=== PATIENT | male | born 1945 | race Caucasian/White ===

== ENCOUNTER 2017-08-24 23:58 | Observation (INO) | payer MEDICARE ==
[2017-08-25] MEDS ORDERED: Dexamethasone 10 MG/ML VIAL ONE (00:34)
[2017-08-25] MEDS ORDERED: Magnesium Sulfate 2 GM/100 ML BAG ONE (00:35)
[2017-08-25 01:02] LABS: #Basophils 0.1 thou/uL (0.0-0.2); #Eosinphils 0.2 thou/uL (0.0-0.7); #Monocytes 0.7 thou/uL (0.11-0.59); #Neutrophils 7.7 thou/uL (1.40-6.50); %Basophils 0.7 % (0.0-1.0); %Eosinophils 1.6 % (0.0-10.0); %Lymphocytes 25.5 % (21.0-51.0); %Monocytes 6.3 % (0.0-10.0); Hematocrit 49.9 % (42.0-52.0); Mean Platelet Volume 7.7 fL (7.4-10.4); Red Blood Cell (RBC) Count 5.24 mill/uL (4.70-6.10); White Blood Cell (WBC) Count 11.7 thou/uL (4.8-10.8)
[2017-08-25 01:07] LABS: PTT 31.6 SEC (22.9-36.1); Prothrombin Time 13.3 SEC (12.0-14.7)
[2017-08-25 01:15] LABS: ALT (SGPT) 15 U/L (8-55); AST (SGOT) 21 U/L (5-34); Alkaline Phosphatase 141 U/L (40-150); Anion Gap 13 mmol/L (10-20); BUN (Urea Nitrogen) 12 mg/dL (8.4-25.7); Bilirubin, Total 0.6 mg/dL (0.2-1.2); CK (CPK) 89 U/L (30-200); Calc. Creatinine Clearance 0 mL/min (70-130); Carbon Dioxide 23 mmol/L (23-31); Chloride 109 mmol/L (98-107); Estimated GFR-MDRD Greater than 90; Globulin 2.8 g/dL (2.4-3.5); Lipase 33 U/L (8-78); Protein, Total 6.6 g/dL (5.8-8.1)
[2017-08-25 01:19] LABS: Troponin I 0.039 ng/mL (< 0.028)
[2017-08-25 02:13] LABS: Modified Allen's Test POSITIVE; Oxyhemoglobin 89.5 % (94.0-97.0); Sodium 141 mmol/L (135-148)
[2017-08-25 02:14] LABS: Mode ROOM AIR; Vent NO
[2017-08-25 04:51] LABS: Troponin I 0.035 ng/mL (< 0.028)
[2017-08-25 07:42] LABS: Troponin I 0.024 ng/mL (< 0.028)
--- NOTE | 2017-08-25 07:44 | RAD ---
CHEST 1 VIEW: HISTORY: Cough and congestion. COMPARISON: Chest 1 view 05/12/12. FINDINGS: There is blunting of the left lateral costophrenic sulcus. Faint airspace opacity in the right lung base. These are new. No pneumothorax. Cardiac silhouette and mediastinal contours are similar. IMPRESSION: 1. Small left effusion versus scarring. 2. New faint airspace opacity right lung base may represent pneumonia. Followup after treatment rec ommended. POS: ROSE MARY
[2017-08-25] MEDS ORDERED: HYDROcodone/Acetaminophen 5/325 mg Tablet PO PRN (08:33)
[2017-08-25] MEDS ORDERED: Acetaminophen 325 MG TAB PO PRN (08:33)
[2017-08-25] MEDS ORDERED: HYDROcodone/Acetaminophen 10/325 mg Tablet PO PRN (08:33)
[2017-08-25] MEDS ORDERED: Albuterol Sulfate 2.5 mg/3 ml Neb NEB PRN (08:41)
[2017-08-25 09:24] LABS: Troponin I 0.018 ng/mL (< 0.028)
--- NOTE | 2017-08-25 09:48 | PDOC.EVN ---
Event Note - Event Note Event Note: The chart was reviewed for the purpose of Utilization Management. The patient' s acuity does not meet the level of Inpatient status. Therefore under the Medicare Provision Code 44, the patient's status will be changed to Observation. The patient's Attending Physician initiated the change, and I agree.
[2017-08-25 12:49] VITALS: BMI 32.8
[2017-08-25] MEDS: Enoxaparin Sodium 40 MG/0.4 ML SYRINGE SC SCH (14:33)
[2017-08-25] MEDS: guaiFENesin ER 600 MG TAB PO SCH ×2 (14:34→21:27)
[2017-08-25] MEDS: Famotidine 20 MG TAB PO SCH ×2 (14:37→21:28)
[2017-08-25 17:45] LABS: Troponin I 0.013 ng/mL (< 0.028)
[2017-08-26] MEDS ORDERED: predniSONE 20 MG TAB PO SCH (08:00)
[2017-08-26 08:43] VITALS: BP 151/85; TEMP 97.9
[2017-08-26] MEDS: Enoxaparin Sodium 40 MG/0.4 ML SYRINGE SC SCH (08:44)
[2017-08-26] MEDS: Famotidine 20 MG TAB PO SCH (08:46)
[2017-08-26] MEDS: guaiFENesin ER 600 MG TAB PO SCH (08:46)
--- NOTE | 2017-08-26 15:08 | DIS ---
PRIMARY CARE PHYSICIAN: David Mora M.D. DATE OF ADMISSION: 08/25/2017 DATE OF DISCHARGE: 08/26/2017 DISCHARGE DIAGNOSES: 1. Acute exacerbation of chronic obstructive pulmonary disease. 2. Hypertension. 3. Obesity. 4. Ongoing tobacco abuse. 5. Probable acute on chronic bronchitis. 6. Benign prostatic hypertrophy. 7. Chronic obstructive pulmonary disease, unconfirmed. 8. Acute exacerbation of chronic obstructive pulmonary disease. CONSULTATIONS: None. PROCEDURES: 1. Echocardiogram on 08/26/2017 that showed EF of 45-50%, mild anterior septal hypokinesis, bradycar cecil, a grade I/III diastolic dysfunction, mild LVH, biatrial enlargement, mild mitral regurgitation, aortic valve sclerosis, but good function, mild AI, mild TR, mild to moderate pulmonary regurgitation . HISTORY AND PHYSICAL: Mr. Hillman is a 72-year-old gentleman who presented to the emergency [facility] [place] around midnight in the morning of 08/25/2017 for evaluation of acute onset of shortness of breath. The patient was asleep and was awakened out of sleep acutely short of breath. He denied any cough or sputum production. He did not have any wheezing, but did have some chest tightness. He presented t o the emergency department for evaluation. There, he was diagnosed with acute exacerbation of COPD. He was given IV magnesium and levofloxacin and Decadron, but no steroids or nebulizer treatments and we were called for admission. The patient was accepted by the automobile seat cover installer, but was not initially seen. The patient handed to me as an admission on the morning of 08/25/2017. HOSPITAL COURSE: The patient was seen and examined by me at 7:00 a.m. He was noted to be satting 96 % on room air. He had no wheezing, but he did have poor air movement. Based on his history, the pat ient was kept in observation, I contacted Pulmonary who agreed to see the patient as an outpatient, a 2D echocardiogram was ordered, nebulizer treatments, steroids, and levofloxacin was ordered. Throug h the day of 08/25/2017, the patient improved. He is moving better air and then continued to sat wel l on room air. Echocardiogram was ordered, but was not done immediately due to patient's location an d hold over the ER and the order was not being activated. Later that day, the patient was transferred to the floor, I spoke with him, he was breathing better, but still not his baseline, so he was watched overnight. Overnight he did well. He had no further e pisodes of shortness of breath. This morning, echocardiogram was done. I discussed the case with Dr Elias Sidhu and noted that the echocardiogram was not completely normal. The patient had no chest pain and negative biomarkers. It was agreed to let him go home with outpati ent followup for establishment with Dr. Sidhu and risk stratification. PHYSICAL EXAMINATION: The patient was seen and examined on the day of discharge. Discharge plan and disposition was discussed with the patient face to face at the bedside. DISCHARGE MEDICATIONS: 1. Albuterol sulfate nebulizer 2.5 mg nebulized q.2 hours p.r.n. shortness of breath or wheezing, pr escription was sent. 2. DuoNeb 3 mL q.6 hours scheduled. 3. Gabapentin 600 mg daily, the home med. 4. Guaifenesin 1200 mg p.o. q.12 hours, prescription sent. 5. Levofloxacin 500 mg daily for 5 more days. 6. Nebulizer and accessories, prescription sent. 7. Prednisone 20 mg p.o. q.a.m. for 14 days, prescription sent. 8. Promethazine with codeine as previously prescribed. 9. Ranitidine 300 mg daily as previous. 10. Zocor 20 mg p.o. at bedtime. 11. Flomax 0.4 mg p.o. daily, presume q.h.s. FOLLOWUP APPOINTMENTS 1. Dr. Mora within a week. 2. Dr. Sidhu in 1-[address] Ernie José for pulmonary evaluation in 1-2 weeks. DISCHARGE DIET: Heart healthy recommended. DISCHARGE ACTIVITY: Per cardiopulmonary limits. DISCHARGE CONDITION: Good. DISPOSITION: Discharged home via private vehicle. The patient is instructed to call his primary physician or return to emergency department for any wor sening of symptoms.
--- NOTE | 2017-08-28 02:09 | HP ---
PRIMARY CARE PHYSICIAN: David Mora M.D. The patient will see Dr. José and Dr. Sidhu. DATE OF ADMISSION: 08/25/2017 TIME OF SERVICE: 7 o'clock. CHIEF COMPLAINT: Cough, congestion, and shortness of breath. HISTORY OF PRESENT ILLNESS: Mr. Hillman is a pleasant 72-year-old gentleman with a history of chroni c neck pain and BPH. He was recently diagnosed about 1 month ago by his primary care physician with COPD due to chronic tobacco use. The patient had cough and shortness of breath about 48 hours prior to presentation and so he came to the emergency department for evaluation. Here he was diagnosed with acute exacerbation of COPD, he was given magnesium, Decadron, and levoflox acin, but on nebulizer treatments, we were called for admission. The patient was hold over from the relay man and I am admitting him first day in the morning. [facility] e arrival, his breathing is better. He has remained on room air. Denies any chest pain or shortness of breath, no fevers or chills. His cough has been nonproductive and no hemoptysis. Denies any cecil rrhea or constipation. The patient describes this episode of shortness of breath that awoke him up i n the middle of night gasping for air. He did not have any recollection of audible wheezing or chest pain. PAST MEDICAL HISTORY: 1. COPD, clinically diagnosed by his primary care physician about 1 month ago. 2. Benign prostatic hypertrophy. 3. Chronic neck pain. SURGICAL HISTORY: Includes, 1. Bilateral shoulders. 2. Rotator cuff repair. 3. Left knee repair. HOME MEDICATIONS: 1. Meloxicam 7.5 mg daily. 2. Tamsulosin 0.4 mg p.o. daily. 3. Gabapentin 300 mg daily. 4. Zocor 20 mg p.o. at bedtime. 5. Ranitidine 300 mg p.o. daily. 6. ProAir inhaler as needed. ALLERGIES: HYDRALAZINE, HYDROCODONE, and LYRICA. FAMILY HISTORY: Negative for clotting or bleeding disorder. No immune dysfunction. No history of p remature coronary artery disease. SOCIAL HISTORY: He does have a significant tobacco history and smoked about 3 packs per day for abou t 35 years. He quit 15 years ago and switched cigars and smokes a couple of cigars a day. He has no t had any cigars in about 3 days. He does not drink and never showed up with drugs. REVIEW OF SYSTEMS: A 10-point review of systems was performed, negative for all other systems except stated as per HPI. PHYSICAL EXAMINATION: VITAL SIGNS: Temperature 98.1, pulse 56, blood pressure 175/81, respiratory rate 22, saturating 90% on room air on arrival. After the antibiotics, steroids, and magnesium, his temperature was 98.5 wit h pulse of 56, blood pressure 159/80, respiratory rate 15, satting 98% on room air. Since admission, he has remained 96% better on room air since arrival. GENERAL: He is awake. He is alert. He is oriented x3. He is a well-developed, well-nourished, eld erly white male, appears to be in no distress. HEENT: Normocephalic and atraumatic. Pupils were equal, round, and reactive to light bilaterally. Mucous membranes are moist. He has no visible lesion, no thrush. NECK: Supple without lymphadenopathy, JVD, or thyromegaly. LUNGS: Clear. No wheezes. No rales. No rhonchi. He has no prolonged expiratory phase. He has go od air movements, symmetrical chest excursion. CARDIOVASCULAR: He is bradycardiac, but regular. He has no audible murmurs. ABDOMEN: Soft, it is nontender, nondistended. There is no masses, no organomegaly. There is no aguila ound, rigidity or guarding. There are normoactive bowel sounds present in all 4 quadrants. EXTREMITIES: Show no cyanosis, no clubbing. He has trace pedal edema. He has 2+ peripheral pulses, dorsalis pedis, and posterior tibial. SKIN: Warm, moist, and more profuse. There is no rashes, no lesions. MUSCULOSKELETAL: Normal to inspection. He has no inflamed joints. There is no palpable joint effus ion. NEUROLOGIC: Cranial nerves II-XII grossly intact. He has no focal deficits. LABORATORY STUDIES: Sodium 141, potassium 4.3, chloride 109, bicarbonate 23, BUN 12, creatinine 0.75 , and calcium 9.0. Glucose 107. Liver function is normal. CBC showed a white count of 11.7, hemogl obin 16.5, hematocrit of 49.9, platelet count is 270,000. Influenza screen was negative. CK-MB norm al at 0.9, troponin I 0.039 and 0.035. BNP was normal at 37.5 and INR of 1.0. Chest x-ray showed bi basilar atelectasis, but no acute cardiopulmonary disease. ASSESSMENT: 1. Acute exacerbation of chronic obstructive pulmonary disease. The patient is not looking or actin g quite like chronic obstructive pulmonary disease. He has no wheezing, no prolonged expiratory phas e. No air trapping on his chest x-ray. He got no nebulizer treatments in the ER. He is not requiri ng oxygen. He does have a significant smoking history. We will continue him on oral prednisone, neb ulizer treatments, and levofloxacin. More he does not any wheezing. His air movement is not optimal . We will recheck him after he gets some respiratory meds. 2. History of paroxysmal nocturnal dyspnea. We will get serial cardiac biomarkers. We will get 2D echocardiogram to assess cardiac function. Given his history certainly could have some underlying he art disease. Currently, BNP is negative. 3. History of benign prostatic hypertrophy. We will continue his tamsulosin here in the hospital. No history of chronic neck pain, on meloxicam and gabapentin, we will continue. 4. Gastroesophageal reflux disease, on ranitidine. The patient was placed in observation, we will get treatment started and get the echocardiogram. He may be here overnight and we can get everything done quickly, but should be here less than 24 hours.
--- NOTE | 2017-08-30 13:54 | EKG ---
Test Reason : Blood Pressure : / mmHG Vent. Rate : 049 BPM Atrial Rate : 049 BPM P-R Int : 192 ms QRS Dur : 092 ms QT Int : 452 ms P-R-T Axes : 038 005 052 degrees QTc Int : 408 ms Marked sinus bradycardia Possible Inferior infarct , age undetermined Abnormal ECG Confirmed by PARAS OAKLEY, CARLO ([id number]), film editor supervisor LYRIC ALLEN ([id number]) on 08/30/2017 1:52:46 PM Referred By: Confirmed By:CARLO CRAIN MD
== END 2017-08-26 10:41 | disposition home or self-care (01) ==
LOC: ERS 23:58 → INTOOBSV 08-25 02:45 → ERHOLD 08-25 02:45 → 2SW 08-25 12:38
PROVIDERS: ADMIT Internal Medicine; ATTEND Internal Medicine
DX: J44.1 Chronic obstructive pulmonary disease with (acute) exacerbation (principal); I10 Essential (primary) hypertension; N40.0 Benign prostatic hyperplasia without lower urinary tract symptoms; I34.0 Nonrheumatic mitral (valve) insufficiency; I35.0 Nonrheumatic aortic (valve) stenosis; I37.1 Nonrheumatic pulmonary valve insufficiency; I51.7 Cardiomegaly; G89.29 Other chronic pain; M54.2 Cervicalgia; F17.290 Nicotine dependence, other tobacco product, uncomplicated; K21.9 Gastro-esophageal reflux disease without esophagitis; E66.9 Obesity, unspecified; Z68.32 Body mass index [BMI] 32.0-32.9, adult; Z88.5 Allergy status to narcotic agent; Z88.8 Allergy status to other drugs, medicaments and biological substances; Z79.899 Other long term (current) drug therapy; Z98.890 Other specified postprocedural states
CPT/HCPCS: 71010; 80053; 82550; 82553 ×2; 82805; 83605; 83690; 83880; 84484 ×2; 85025; 85610; 85730; 87040; 87804 ×2; 93005; 93306; 94640 ×3; 96365; 96366; 96367; 96375; 99285; G0378; 36415; J1100; J1650; J1956; J3475; J7506; J7620

== ENCOUNTER 2017-10-05 11:12 | Outpatient (CLI) | payer MEDICARE ==
--- NOTE | 2017-10-06 15:44 | PFT ---
PATIENT HISTORY: HEIGHT: 71 IN WEIGHT:237 SMOKER: YES HOW LON YRS PACKS PER DAY: 3 PRODUCTIVE COUGH: NO LUNG DISEASE: PHYSICIAN INTERPRETATION FINAL REPORT: Moderate Reduction in expiratory flows in vital capacity following bronchodilator therapy, there was good improvement in vital capacity with a less improvement in expiratory flows RV hyperexpanded RV is hyperinflated. Gas transfer is reduced. IMPRESSION: Obstructive ventilatory impairment. 2. Reduced diffusing capacity Concrete Mixer Loader Truck Mounted: SALOMÓN Dipper Fish: SALOMÓN SR
== END 2017-10-05 11:13 | disposition home or self-care (01) ==
LOC: CP 11:12
PROVIDERS: ATTEND Internal Medicine
DX: J44.9 Chronic obstructive pulmonary disease, unspecified (principal); K21.9 Gastro-esophageal reflux disease without esophagitis
CPT/HCPCS: 80053; 85027; 85610; 85730; 93005; 93010; 94060; 94727; 94729

== ENCOUNTER 2017-10-07 05:51 | Day surgery (SDC) | payer MEDICARE ==
[2017-10-05 11:29] VITALS: BMI 34.0
[2017-10-07 06:53] LABS: Cardiac Risk 2.8 (Less than 4.5)
[2017-10-07] MEDS ORDERED: Heparin 10,000 UNITS/1 ML VIAL ONE (08:27)
[2017-10-07] MEDS ORDERED: Nitroglycerin 100MG/250ML BOT 250 ML ONE (08:30)
[2017-10-07] MEDS ORDERED: Verapamil 5 MG/2 ML VIAL ONE (08:30)
[2017-10-07] MEDS ORDERED: Midazolam HCl 2 mg/2 ml Vial ONE (08:46)
[2017-10-07] MEDS ORDERED: Fentanyl 100 MCG/2 ML VIAL ONE (08:48)
[2017-10-07] MEDS ORDERED: Iopamidol 370 76% 100 ML VIAL ONE (16:28)
== END 2017-10-07 12:38 | disposition home or self-care (01) ==
LOC: CCL 05:51
PROVIDERS: ATTEND Internal Medicine Cardiovascular Disease
DX: I25.5 Ischemic cardiomyopathy (principal); I25.10 Atherosclerotic heart disease of native coronary artery without angina pectoris; I42.0 Dilated cardiomyopathy; E78.00 Pure hypercholesterolemia, unspecified; J44.9 Chronic obstructive pulmonary disease, unspecified; I10 Essential (primary) hypertension; Z87.891 Personal history of nicotine dependence; Z82.49 Family history of ischemic heart disease and other diseases of the circulatory system; Z79.1 Long term (current) use of non-steroidal anti-inflammatories (NSAID); Z79.899 Other long term (current) drug therapy; Z88.8 Allergy status to other drugs, medicaments and biological substances; Z88.5 Allergy status to narcotic agent; Z96.1 Presence of intraocular lens; Z98.890 Other specified postprocedural states
CPT/HCPCS: 80061; 93458; 93567; C1769; 99152; J1644; J2250; J3010

== ENCOUNTER 2017-10-26 08:50 | Outpatient (CLI) | payer MEDICARE ==
--- NOTE | 2017-10-26 11:52 | CT ---
CTA OF THE THORAX UTILIZING IV CONTRAST AND 3D REFORMATTED IMAGING: Date: 10/26/17 INDICATION: History of hypertension, hypercholesterolemia, and thoracic aortic aneurysm without rupture. COMPARISON: Prior CTA examination dated 05/10/08. FINDINGS: The ectasia involving the ascending aorta measured at the level of the right main pulmonary artery me asures 4.3 cm. This previously measured 4.3 cm on the comparison exam from 2007. The aortic arch measured 2.9 cm, which measured up to 3.0 cm on the comparison examination. The descending thoracic aorta at the level of the right main pulmonary artery measures 2.8 cm, where as it previously measured 2.7 cm. There are coronary artery and thoracic aortic calcifications. The l eft vertebral artery originates from the aortic arch, which is a normal variant. The origins of the g reat vessels appear within normal limits. No definite central pulmonary embolus is evident. There is worsening centrilobular and paraseptal emphysema seen in the upper lobe distribution. No foc al consolidation, pleural effusion, or pneumothorax is evident. No suspicious pulmonary nodule is clementine dent. There are small focal regions of flash-filling arterial enhancement seen within segment 6 of the righ t hepatic lobe and segment 7 of the right hepatic lobe on images 128 and 106, series 2. These regions were beyond the field of view on the comparison examination. This may reflect small flash-filling he mangiomas; however, arterially enhancing metastatic lesions cannot be entirely excluded, but is felt to be unlikely without history of prior malignancy. No suspicious osteolytic or osteoblastic lesion i s identified. IMPRESSION: 1. Stable ectasia of the ascending aorta. Stable mild aneurysmal dilatation of the thoracic aortic a rch. 2. Worsening emphysema. 3. Small arterially enhancing foci within the posterior aspect of the right hepatic lobe. These may reflect small capillary type hemangiomas. As a conservative measure, would recommend a follow-up CT e valuation in 3-6 months utilizing hemangioma protocol and IV contrast for further characterization an d to document stability. Arterially enhancing metastatic disease would be part of the differential co nsiderations; however, in the absence of history of malignancy, this is felt to be unlikely. POS: KARL
[2017-10-26] MEDS ORDERED: Iopamidol 370 76% 100 ML VIAL ONE (13:35)
== END 2017-10-26 08:51 | disposition home or self-care (01) ==
LOC: CT 08:50
PROVIDERS: ATTEND Internal Medicine Cardiovascular Disease
DX: I71.2 Thoracic aortic aneurysm, without rupture (principal); J43.9 Emphysema, unspecified; K76.89 Other specified diseases of liver
CPT/HCPCS: 71275

== ENCOUNTER 2019-06-09 09:21 | Outpatient (CLI) | payer MEDICARE ==
[2019-06-09 10:03] LABS: Estimated GFR-MDRD - POC Greater than 90
--- NOTE | 2019-06-09 12:28 | CT ---
CTA CHEST WITH CONTRAT: Date: 06/09/19 COMPARISON: 10/26/17. HISTORY: Ascending aortic aneurysm. TECHNIQUE: Multiple contiguous axial images were obtained in a CTA of the chest without and with contrast. 3D sa gittal and coronal MIP reformats were performed. FINDINGS: No suspicious pulmonary nodules are seen. No focal infiltrates are seen. No pneumothorax or pleural e ffusion seen. Scattered diverticula are seen in the colon. The other visualized subdiaphragmatic structures are unr emarkable. Degenerative changes are seen in the spine. The chest wall soft tissues are unremarkable. There is stable ectasia of the ascending aorta. The sinus of Valsalva measures 4.6 cm in greatest dim ension. The ascending aorta measures 4.3 cm in maximum dimension at the level of the main pulmonary a rtery. The descending thoracic aorta is normal in caliber. No dissection is seen. IMPRESSION: Stable ectasia of the ascending aorta. POS: CET
[2019-06-09] MEDS ORDERED: ISOVUE-370 76%-LOCM 1 ML ONE (12:39)
== END 2019-06-09 09:22 | disposition home or self-care (01) ==
LOC: BICCT 09:21
PROVIDERS: ATTEND Internal Medicine Cardiovascular Disease
DX: I71.2 Thoracic aortic aneurysm, without rupture (principal); I77.810 Thoracic aortic ectasia
CPT/HCPCS: 36415; 71275; 82565; Q9966

== ENCOUNTER 2020-01-30 07:42 | Outpatient (CLI) | payer MEDICARE, OTHER ==
[2020-01-30 15:17] LABS: #Eosinphils 0.2 thou/uL (0.0-0.7); #Lymphocytes 1.8 thou/uL (1.20-3.40); #Monocytes 0.6 thou/uL (0.11-0.59); #Neutrophils 4.8 thou/uL (1.40-6.50); %Basophils 0.5 % (0.0-1.0); %Eosinophils 2.5 % (0.0-10.0); %Lymphocytes 24.1 % (21.0-51.0); %Monocytes 7.7 % (0.0-10.0); %Neutrophils 65.2 % (42.0-75.0); Hemoglobin 14.5 g/dL (14.0-18.0); Mean Corpuscular HGB CONC 32.5 g/dL (32.0-36.0); Mean Corpuscular Hemoglobin 30.8 pg (27.0-31.0); Mean Corpuscular Volume 94.8 fL (78.0-98.0); Mean Platelet Volume 8.9 fL (7.4-10.4); Platelet Count 218 thou/uL (130-400); RBC Distribution Width 13.7 % (11.5-14.5); Red Blood Cell (RBC) Count 4.71 mill/uL (4.70-6.10); White Blood Cell (WBC) Count 7.4 thou/uL (4.8-10.8)
[2020-01-31 10:58] LABS: SARS-CoV-2 MS2 Positive; SARS-CoV-2 N Gene Negative; SARS-CoV-2 S Gene Negative; SARS-CoV-2 orf1ab Negative
== END 2020-01-30 07:43 | disposition home or self-care (01) ==
LOC: LABBT 07:42
PROVIDERS: ATTEND Orthopaedic Surgery
DX: Z01.818 Encounter for other preprocedural examination (principal); Z11.59 Encounter for screening for other viral diseases; G56.01 Carpal tunnel syndrome, right upper limb
CPT/HCPCS: 85025; 93005; U0003; 87635; 93010

== ENCOUNTER 2020-02-01 06:42 | Day surgery (SDC) | payer MEDICARE ==
[2020-01-30 13:34] VITALS: BMI 35.2
[2020-02-01] MEDS ORDERED: Midazolam HCl 2 mg/2 ml Vial ONE (08:20)
[2020-02-01] MEDS ORDERED: Fentanyl 100 MCG/2 ML VIAL ONE (08:20)
[2020-02-01] MEDS ORDERED: Lidocaine 1% w/Epinephrine 1:100K 20 ML VIAL ONE (08:43)
--- NOTE | 2020-02-01 10:35 | OP ---
DATE OF PROCEDURE: 02/01/2020 PREOPERATIVE DIAGNOSIS: Carpal tunnel syndrome, right. POSTOPERATIVE DIAGNOSIS: Carpal tunnel syndrome, right. PROCEDURE PERFORMED: Right carpal tunnel release. ANESTHESIA: TIVA, local. BLOOD LOSS: Minimal. SPECIMEN: None. DRAINS: None. COMPLICATIONS: None. PROCEDURE IN DETAIL: After appropriate consent was obtained, the patient was taken to the operating room where TIVA anesthesia was induced. The arm was prepped and draped in the sterile fashion. The arm was exsanguinated. The tourniquet was inflated to 250 mmHg. A longitudinal incision was made. Hemostasis obtained. Dissection was carried down to the transverse carpal ligament. The transverse carpal ligament was incised. Hemostat was placed deep in the transverse carpal ligament. The knife was used to cut down unto the ligament and hemostat. Care was taken to protect the contents of the carpal canal. Attention was then turned proximally. Metzenbaum scissors were used to release the carpal ligament into the forearm fascia. The carpal tunnel was palpated. There were no masses. The tourniquet was released. Hemostasis was obtained. Copious irrigation performed. The skin was closed with 4-0 nylon. A sterile dressing was applied and the patient was placed in a splint. There were no complications. Job ID: [id number]
[2020-02-01] MEDS ORDERED: Glycopyrrolate 0.2 MG/ML 5 ML SYRINGE ONE (13:38)
[2020-02-01] MEDS ORDERED: PROPOFOL 200 MG/20 ML VIAL ONE (13:38)
== END 2020-02-01 10:15 | disposition home or self-care (01) ==
LOC: SDC 06:42
PROVIDERS: ATTEND Orthopaedic Surgery
PROC: 01N50ZZ Release Median Nerve, Open Approach (ICD-10-PCS; principal; 2020-02-01)
DX: G56.01 Carpal tunnel syndrome, right upper limb (principal); M16.12 Unilateral primary osteoarthritis, left hip; M19.019 Primary osteoarthritis, unspecified shoulder; I10 Essential (primary) hypertension; G47.33 Obstructive sleep apnea (adult) (pediatric); Z87.891 Personal history of nicotine dependence; Z79.1 Long term (current) use of non-steroidal anti-inflammatories (NSAID); Z79.82 Long term (current) use of aspirin; Z79.899 Other long term (current) drug therapy; Z88.5 Allergy status to narcotic agent; Z88.8 Allergy status to other drugs, medicaments and biological substances
CPT/HCPCS: J0690; J2250; J3010

== ENCOUNTER 2020-03-22 06:36 | Outpatient (CLI) | payer MEDICARE, OTHER ==
[2020-03-22 13:58] LABS: INR-International Normal Ratio 0.9; Prothrombin Time 12.5 sec (12.0-14.7)
[2020-03-22 14:11] LABS: #Eosinphils 0.1 thou/uL (0.0-0.7); #Lymphocytes 1.4 thou/uL (1.20-3.40); #Monocytes 0.5 thou/uL (0.11-0.59); #Neutrophils 5.2 thou/uL (1.40-6.50); %Basophils 0.5 % (0.0-1.0); %Lymphocytes 19.3 % (21.0-51.0); %Monocytes 6.7 % (0.0-10.0); %Neutrophils 71.5 % (42.0-75.0); Hemoglobin 15.3 g/dL (14.0-18.0); Mean Corpuscular HGB CONC 32.2 g/dL (32.0-36.0); Mean Corpuscular Hemoglobin 30.6 pg (27.0-31.0); Mean Corpuscular Volume 95.1 fL (78.0-98.0); Mean Platelet Volume 8.8 fL (7.4-10.4); Platelet Count 208 thou/uL (130-400); RBC Distribution Width 14.7 % (11.5-14.5); White Blood Cell (WBC) Count 7.2 thou/uL (4.8-10.8)
[2020-03-22 14:25] LABS: Bacteria/HPF None Seen HPF (None Seen); Bilirubin Negative (Negative); Blood, Urine Negative (Negative); Clarity Clear (Clear); Glucose, Urine (Dipstick) Normal (Negative); Ketone, Urine Negative (Negative); Leukocyte Negative Leu/uL (Negative); Nitrite Negative (Negative); Protein, Urine (Dipstick) Negative (Neg-Trace); RBC/HPF 0-3 HPF (0-3); Specific Gravity, Urine 1.016 (1.002-1.036); Squamous Epithelial None Seen HPF (0-3); Urobilinogen Normal mg/dL (Less than 2); WBC/HPF 0-3 HPF (0-3); pH, Urine 5.5 (5.0-9.0)
[2020-03-22 14:27] LABS: Anion Gap 14 mmol/L (10-20); BUN (Urea Nitrogen) 11 mg/dL (8.4-25.7); Calc. Creatinine Clearance 0 mL/min (70-130); Calcium 9.2 mg/dL (7.8-10.44); Carbon Dioxide 23 mmol/L (23-31); Chloride 107 mmol/L (98-107); Estimated GFR-MDRD Greater than 90; Glucose 95 mg/dL (83-110); Potassium 4.8 mmol/L (3.5-5.1); Sodium 139 mmol/L (136-145)
[2020-03-23 12:16] LABS: SARS-CoV-2 MS2 Positive; SARS-CoV-2 N Gene Negative; SARS-CoV-2 S Gene Negative; SARS-CoV-2 orf1ab Negative
== END 2020-03-22 06:37 | disposition home or self-care (01) ==
LOC: LABBT 06:36
PROVIDERS: ATTEND Orthopaedic Surgery
DX: Z01.818 Encounter for other preprocedural examination (principal); Z11.59 Encounter for screening for other viral diseases; M16.11 Unilateral primary osteoarthritis, right hip
CPT/HCPCS: 80048; 81001; 85025; 85610; 87081; 93005; U0003; 87635; 93010

== ENCOUNTER 2020-03-22 10:30 | Inpatient (IN) | payer MEDICARE ==
[2020-03-20 11:31] VITALS: BMI 34.7
[2020-03-26] MEDS ORDERED: CEFAZOLIN 2 GM in Premix Bag 1 BAG IVPB SCH (07:15)
[2020-03-26] MEDS ORDERED: Fentanyl 100 MCG/2 ML VIAL ONE ×4 (07:25→11:23)
[2020-03-26] MEDS ORDERED: Midazolam HCl 2 mg/2 ml Vial ONE (07:25)
[2020-03-26] MEDS ORDERED: Tranexamic Acid 1,000 MG/10 ML VIAL ONE (07:41)
[2020-03-26] MEDS ORDERED: Sodium Chloride 0.9% 100 ML ONE (07:41)
[2020-03-26] MEDS ORDERED: Naloxone HCl 0.4 mg/ml Vial IVP PRN (08:15)
[2020-03-26] MEDS ORDERED: Hydrocerin (Eucerin) Cream 120 gm Jar TOP PRN (08:15)
[2020-03-26] MEDS ORDERED: Promethazine HCl 25 MG SUPP PR PRN (08:15)
[2020-03-26] MEDS ORDERED: Naloxone HCl 0.4 mg/ml Vial IV PRN (08:15)
[2020-03-26] MEDS ORDERED: traMADol HCl 50 MG TAB PO PRN (08:15)
[2020-03-26] MEDS ORDERED: Ondansetron PF 4 MG/2 ML Vial IVP PRN ×2 (08:15→10:40)
[2020-03-26] MEDS ORDERED: diphenhydrAMINE 50 MG/ML VIAL IM PRN (08:15)
[2020-03-26] MEDS ORDERED: Zolpidem Tartrate 5 MG TAB PO PRN ×2 (08:15→10:40)
[2020-03-26] MEDS ORDERED: diphenhydrAMINE 50 MG/ML VIAL IVP PRN (08:15)
[2020-03-26] MEDS ORDERED: Bupivacaine 0.25% 10 ML VIAL EPIDURAL PRN (08:15)
[2020-03-26] MEDS ORDERED: Promethazine HCl 25 MG/ML VIAL IM PRN ×3 (08:15→10:45)
[2020-03-26] MEDS ORDERED: Bupivacaine/Epinephrine 0.25% 30 ML VIAL ONE (09:09)
[2020-03-26] MEDS ORDERED: SUGAMMADEX SODIUM 200 MG/2 ML VIAL ONE (10:37)
[2020-03-26] MEDS ORDERED: diphenhydrAMINE 25 MG CAP PO PRN (10:40)
[2020-03-26] MEDS ORDERED: oxyCODONE/Acetaminophen 5 mg/325 mg Tablet PO PRN ×2 (10:43)
[2020-03-26] MEDS ORDERED: PACU-Morphine 4MG/ML VIAL SLOW IVP PRN (10:45)
[2020-03-26] MEDS ORDERED: Meperidine HCl/PF 25 MG/ML VIAL SLOW IVP PRN (10:45)
[2020-03-26] MEDS ORDERED: HYDROmorphone 2 MG/ML VIAL SLOW IVP PRN (10:45)
[2020-03-26] MEDS ORDERED: Promethazine HCl 25 MG/ML VIAL SLOW IVP PRN (10:45)
[2020-03-26] MEDS ORDERED: Ondansetron HCl/PF 4 MG/2 ML Vial IVP PRN (10:45)
[2020-03-26] MEDS ORDERED: Morphine Sulfate 2 MG/ML SYRINGE SLOW IVP PRN (10:45)
[2020-03-26] MEDS ORDERED: Ketorolac Tromethamine 30 MG/ML VIAL ONE (10:57)
--- NOTE | 2020-03-26 11:28 | RAD ---
Right hip 2 views HISTORY: Hip replacement. Arthritis. FINDINGS: Metallic prosthesis is in place. Minimal adjacent lucency at the midportion of the acetabul ar component. No other metallic foreign bodies evident. Soft tissue gas from recent surgery. IMPRESSION : Right hip prosthesis is in good radiographic position.
[2020-03-26] MEDS ORDERED: Lidocaine 1.5% w/Epi 1:200K 30 ML VIAL (Epid Use) ONE (14:01)
[2020-03-26] MEDS ORDERED: PROPOFOL 200 MG/20 ML VIAL ONE (14:01)
[2020-03-26] MEDS ORDERED: Glycopyrrolate 0.2 MG/ML 5 ML SYRINGE ONE ×2 (14:01)
[2020-03-26] MEDS ORDERED: Lidocaine 1% PF 5 ML VIAL ONE (14:01)
[2020-03-26] MEDS ORDERED: Rocuronium Bromide 10 MG/ML (10ML VIAL) ONE (14:01)
[2020-03-26] MEDS ORDERED: Dexamethasone 20 MG/5 ML VIAL ONE (14:01)
[2020-03-26] MEDS ORDERED: EPHEDRINE 25 MG/5 ML SYRINGE ONE (14:01)
[2020-03-26] MEDS ORDERED: Ondansetron PF 4 MG/2 ML Vial ONE (14:01)
[2020-03-26] MEDS: Acetaminophen 325 MG TAB PO SCH ×3 (18:01→21:08)
[2020-03-26] MEDS: Ketorolac Tromethamine 30 MG/ML VIAL IVP SCH ×3 (18:02→23:51)
[2020-03-26] MEDS: Sodium Chloride 0.9% 1,000 ML IV SCH ×2 (18:02→21:06)
[2020-03-26] MEDS: CEFAZOLIN 2 GM in Premix Bag 1 BAG IVPB SCH ×2 (18:34→23:51)
[2020-03-26] MEDS: Amlodipine 5 MG TAB PO SCH (21:08)
[2020-03-26] MEDS: Finasteride 5 MG TAB PO SCH (21:09)
[2020-03-26] MEDS: Lisinopril 20 MG TAB PO SCH (21:09)
[2020-03-26] MEDS: Tamsulosin HCl 0.4 MG CAP PO SCH (21:09)
[2020-03-26] MEDS: Gabapentin 300 MG CAP PO SCH (21:09)
[2020-03-26] MEDS: Aspirin 81 mg Enteric Coated Tablet PO SCH (21:09)
[2020-03-26] MEDS: Famotidine 20 MG TAB PO SCH (21:10)
[2020-03-26] MEDS: Atorvastatin Calcium 10 MG TAB PO SCH (21:10)
[2020-03-27] MEDS: fentaNYL Citrate/PF 500 MCG, Bupivacaine 10 ML in Sodium Chloride 0.9% 80 ML EPIDURAL SCH ×2 (00:30→16:50)
[2020-03-27] MEDS: Acetaminophen 325 MG TAB PO SCH ×6 (00:31→20:47)
[2020-03-27 05:35] LABS: Hemoglobin 12.9 g/dL (14.0-18.0); Mean Corpuscular HGB CONC 33.2 g/dL (32.0-36.0); Mean Corpuscular Hemoglobin 31.5 pg (27.0-31.0); Mean Corpuscular Volume 94.7 fL (78.0-98.0); Mean Platelet Volume 8.5 fL (7.4-10.4); Platelet Count 225 thou/uL (130-400); RBC Distribution Width 14.4 % (11.5-14.5); White Blood Cell (WBC) Count 8.8 thou/uL (4.8-10.8)
[2020-03-27] MEDS: Ketorolac Tromethamine 30 MG/ML VIAL IVP SCH ×3 (05:56→17:09)
[2020-03-27] MEDS: diphenhydrAMINE 25 MG CAP PO PRN ×3 (06:03→20:55)
[2020-03-27] MEDS: Senokot S 8.6-50 MG TAB PO SCH ×2 (08:02→20:47)
[2020-03-27] MEDS: Aspirin 81 mg Enteric Coated Tablet PO SCH ×2 (08:02→20:46)
[2020-03-27] MEDS: Multivitamin W/ Minerals 1 TAB PO SCH (08:03)
[2020-03-27] MEDS: Ferrous Gluconate 324 MG TAB PO SCH ×2 (08:03→20:47)
[2020-03-27] MEDS: Sodium Chloride 0.9% 1,000 ML IV SCH ×2 (08:17→16:25)
[2020-03-27] MEDS ORDERED: Aspirin 81 mg Enteric Coated Tablet PO SCH (09:00)
[2020-03-27] MEDS: Lisinopril 20 MG TAB PO SCH (20:46)
[2020-03-27] MEDS: Atorvastatin Calcium 10 MG TAB PO SCH (20:46)
[2020-03-27] MEDS: Famotidine 20 MG TAB PO SCH (20:46)
[2020-03-27] MEDS: Gabapentin 300 MG CAP PO SCH (20:46)
[2020-03-27] MEDS: Finasteride 5 MG TAB PO SCH (20:46)
[2020-03-27] MEDS: Tamsulosin HCl 0.4 MG CAP PO SCH (20:47)
[2020-03-27] MEDS: Amlodipine 5 MG TAB PO SCH (20:47)
[2020-03-28] MEDS: Ketorolac Tromethamine 30 MG/ML VIAL IVP SCH ×2 (00:21→05:15)
[2020-03-28] MEDS: Sodium Chloride 0.9% 1,000 ML IV SCH ×3 (00:22→23:27)
[2020-03-28] MEDS: Acetaminophen 325 MG TAB PO SCH ×3 (00:22→09:23)
[2020-03-28] MEDS: diphenhydrAMINE 25 MG CAP PO PRN ×2 (05:19→09:23)
[2020-03-28] MEDS: Multivitamin W/ Minerals 1 TAB PO SCH (09:23)
[2020-03-28] MEDS: Aspirin 81 mg Enteric Coated Tablet PO SCH ×2 (09:23→20:15)
[2020-03-28] MEDS: Senokot S 8.6-50 MG TAB PO SCH ×2 (09:23→20:15)
[2020-03-28] MEDS: Ferrous Gluconate 324 MG TAB PO SCH ×2 (09:23→20:15)
[2020-03-28] MEDS ORDERED: Ibuprofen 200 MG TAB PO PRN (09:49)
[2020-03-28] MEDS ORDERED: Acetaminophen 325 MG TAB PO PRN (12:00)
[2020-03-28] MEDS: traMADol HCl 50 MG TAB PO PRN ×2 (13:40→19:06)
[2020-03-28] MEDS: Famotidine 20 MG TAB PO SCH (20:15)
[2020-03-28] MEDS: Gabapentin 300 MG CAP PO SCH (20:15)
[2020-03-28] MEDS: Finasteride 5 MG TAB PO SCH (20:15)
[2020-03-28] MEDS: Lisinopril 20 MG TAB PO SCH (20:15)
[2020-03-28] MEDS: Atorvastatin Calcium 10 MG TAB PO SCH (20:16)
[2020-03-28] MEDS: Tamsulosin HCl 0.4 MG CAP PO SCH (20:16)
[2020-03-28] MEDS: Amlodipine 5 MG TAB PO SCH (20:16)
[2020-03-29] MEDS: traMADol HCl 50 MG TAB PO PRN (00:51)
[2020-03-29] MEDS: Aspirin 81 mg Enteric Coated Tablet PO SCH (09:11)
[2020-03-29] MEDS: Ferrous Gluconate 324 MG TAB PO SCH (09:11)
[2020-03-29] MEDS: Senokot S 8.6-50 MG TAB PO SCH (09:11)
[2020-03-29] MEDS: Multivitamin W/ Minerals 1 TAB PO SCH (09:11)
[2020-03-29] MEDS: Sodium Chloride 0.9% 1,000 ML IV SCH (09:17)
[2020-03-29 09:56] VITALS: BP 117/68; TEMP 97.7
--- NOTE | 2020-04-04 13:22 | OP ---
DATE OF PROCEDURE: 03/26/2020 This is Mohan Wolff PA-C dictating a report for Hang Rodriguez MD. ANESTHESIA: General via endotracheal tube, augmented with indwelling epidural. PREOPERATIVE DIAGNOSIS: End-stage bicompartmental osteoarthritis, right hip POSTOPERATIVE DIAGNOSIS: End-stage bicompartmental osteoarthritis, right hip PROCEDURE: Press-fit right total hip arthroplasty. BRAND SALES MANAGER: Mohan Wolff PA-C COMPONENTS USED: [employer] Accolade II size 4 press-fit hip stem with a Trident II Tritanium 58-mm press-fit acetabular cluster hole shell, 10 degree polyethylene fixed bearing insert, and a 36 mm -5 neck length femoral head. ESTIMATED BLOOD LOSS: Less than 100 mL. SPECIMENS: None. DRAINS: None. COMPLICATIONS: None. COUNTS: Correct. FINDINGS: End-stage severe degenerative bicompartmental disease, [id number] arthrosis, periarticular osteophyte formation, large serous effusion, hypertrophic synovial changes, consistent with degenerative bicompartmental osteoarthritis, chronic in nature. INPUT: 1 L of crystalloid. OUTPUT: 200 mL of clear yellow urine. INDICATIONS FOR SURGERY: Derrick is a 75-year-old white male who has had progressive right hip groin and thigh pain and problem with standing and walking for the last 5 to 7 years. He has failed conservative management and elected to proceed with total hip arthroplasty as definitive treatment of his pain. PROCEDURE IN DETAIL: After informed consent was obtained in the preoperative holding area, the patient was taken to the operative suite where general anesthesia was induced. The patient was then positioned in the lateral decubitus position. The hip was then prepped and draped in usual sterile fashion. The patient received preoperative antibiotics. Prior to incision, time-out was called and all members of the surgical team agreed upon site, surgeon, and patient. After this, a longitudinal incision was made directly over the trochanter, noted by palpation extending 2 fingerbreadths above and below the trochanter. The deeper subcutaneous layer was undermined with Bovie electrocautery. The iliotibial band was encountered and incised sharply and the plane below this was developed bluntly. A Charnley retractor was placed to hold this opened. The lateral aspect of the trochanter and the abductor muscles were encountered and then reflected anteriorly off the trochanter using Bovie electrocautery. Once this was completed, the anterior capsule was then encountered and identified and copious capsulotomy was carried out, exposing the femoral neck and head. Dislocation maneuver was then performed and the surgeon child nutrition assistant then used the oscillating saw to make a provisional neck cut, which was approximately one fingerbreadth above the top of the lesser trochanter clinically. The surgeon attention was then turned to acetabular preparation. Sequential reaming was carried out up to the appropriate diameter and a trial was then malleted into place with good firm resistance and no pullout. The permanent acetabular shell was then malleted squarely into place, as was the appropriate liner. Once completed, the wound was copiously irrigated and attention was then turned to femoral preparation. Flexion and external rotation were performed of the exposed thigh and femoral elevators were then placed at the proximal aspect of the wound. The surgeon child nutrition assistant then used the acetabular reaming device sequentially to the appropriate size. Canal finder was used to establish the length of the canal and sequential reaming was carried out, followed by broaching. Once the appropriate stability was established with the trial broaches with flexion, extension and rotational stability, we did trial with neutral and 2 mm offset incremental necks. Once the appropriate size was decided upon, with good stability noted with flexion, extension, internal and external rotation and shuck being negative, we removed the femoral trial broach and malletted into place the permanent prosthesis with good firm fit, which was also stable to rotation. Again, the hip felt very stable to flexion, extension, internal and external rotation. Leg lengths appeared near anatomic clinically and we were quite happy with prosthesis placement. Copious irrigation was then carried out through the entirety of the wound. Primary closure of the abductors was accomplished with interrupted #2 Vicryl [id number] stitches and the IT band was then closed with interrupted #2 Vicryl, oversewn with a #2 running barbed Quill stitch. Subcutaneous fascia was closed with running barbed Quill stitch and a subcuticular Monocryl barbed Quill stitch was used for skin closure and augmented with skin cement. A sterile dressing was applied. The procedure was terminated without any complication. All counts were correct. The patient was awakened in the operative suite and taken to the recovery room in stable condition. Job ID: [id number]
== END 2020-03-29 14:30 | disposition home health service (06) | DRG 470 ==
LOC: SURG A 03-26 06:27 → EDSTATUS 03-26 10:30 → SURG A 03-26 15:42
PROVIDERS: ADMIT Orthopaedic Surgery; ATTEND Orthopaedic Surgery
PROC: 0SR902A Replacement of Right Hip Joint with Metal on Polyethylene Synthetic Substitute, Uncemented, Open Approach (ICD-10-PCS; principal; 2020-03-26)
DX: M16.11 Unilateral primary osteoarthritis, right hip (principal); I10 Essential (primary) hypertension; E78.5 Hyperlipidemia, unspecified; J44.9 Chronic obstructive pulmonary disease, unspecified; G47.30 Sleep apnea, unspecified; E66.9 Obesity, unspecified; N40.0 Benign prostatic hyperplasia without lower urinary tract symptoms; Z87.891 Personal history of nicotine dependence; Z68.34 Body mass index [BMI] 34.0-34.9, adult; Z79.899 Other long term (current) drug therapy; Z79.82 Long term (current) use of aspirin
CPT/HCPCS: 36415; 85027; C1776; J0690; J1100; J1885; J2001; J2250; J2405; J2704; J3010; J3490; Q0163

== ENCOUNTER 2021-02-18 12:58 | Outpatient (CLI) | payer MEDICARE | END 2021-02-18 12:59 | disposition home or self-care (01) | LOC: SCSMRI 12:58 | PROVIDERS: ATTEND Orthopaedic Surgery | DX: M48.062 Spinal stenosis, lumbar region with neurogenic claudication (principal); M47.816 Spondylosis without myelopathy or radiculopathy, lumbar region; M47.817 Spondylosis without myelopathy or radiculopathy, lumbosacral region; M48.07 Spinal stenosis, lumbosacral region | CPT/HCPCS: 72148 ==

== ENCOUNTER 2021-07-03 11:37 | Outpatient (CLI) | payer MEDICARE | END 2021-07-03 11:38 | disposition home or self-care (01) | LOC: CT 11:37 | PROVIDERS: ATTEND Internal Medicine Cardiovascular Disease | DX: I71.2 Thoracic aortic aneurysm, without rupture (principal) | CPT/HCPCS: 71275 ==

== ENCOUNTER 2021-12-11 15:28 | Outpatient (CLI) | payer MEDICARE ==
[2021-12-11 16:34] LABS: #Basophils 0.1 10x3/uL (0.0-0.2); #Eosinphils 0.1 10x3/uL (0.0-0.5); #Monocytes 0.8 10x3/uL (0.0-1.1); #Neutrophils 7.7 10x3/uL (1.5-8.4); %Basophils 0.8 % (0.0-2.0); %Eosinophils 0.9 % (0.0-6.0); %Lymphocytes 13.7 % (18.0-47.0); %Monocytes 8.1 % (0.0-10.0); %Neutrophils 76.2 % (40.0-75.0); Hemoglobin 15.2 g/dL (13.5-17.5); Mean Corpuscular HGB CONC 32.1 g/dL (32.0-36.0); Mean Corpuscular Hemoglobin 29.5 pg (27.0-33.0); Mean Corpuscular Volume 91.9 fl (81.2-95.1); Mean Platelet Volume 10.6 fl (7.4-10.4); Platelet Count 364 10x3/uL (150-450); RBC Distribution Width 14.7 % (11.5-14.5); Red Blood Cell (RBC) Count 5.16 10x6/uL (4.32-5.72); White Blood Cell (WBC) Count 10.1 10x3/uL (3.5-10.5)
[2021-12-11 16:49] LABS: Anion Gap 14 mmol/L (10-20); BUN (Urea Nitrogen) 13 mg/dL (8.4-25.7); Calc. Creatinine Clearance 0 mL/min (70-130); Calcium 9.6 mg/dL (7.8-10.44); Carbon Dioxide 28 mmol/L (23-31); Chloride 106 mmol/L (98-107); Glucose 81 mg/dL (83-110); Potassium 4.3 mmol/L (3.5-5.1); Sodium 144 mmol/L (136-145)
[2021-12-12 15:49] LABS: SARS-CoV-2 PCR by NAA Not Detected (NotDetected)
== END 2021-12-11 15:29 | disposition home or self-care (01) ==
LOC: LABBT 15:28
PROVIDERS: ATTEND Orthopaedic Surgery
DX: Z01.812 Encounter for preprocedural laboratory examination (principal); M16.12 Unilateral primary osteoarthritis, left hip; Z20.822 Contact with and (suspected) exposure to COVID-19
CPT/HCPCS: 80048; 85025; 87081; U0003; U0005

== ENCOUNTER 2022-07-22 09:52 | Outpatient (CLI) | payer MEDICARE | END 2022-07-22 09:53 | disposition home or self-care (01) | LOC: RAD 09:52 | PROVIDERS: ATTEND Internal Medicine Critical Care Medicine | DX: R06.00 Dyspnea, unspecified (principal) | CPT/HCPCS: 71046 ==

== ENCOUNTER 2022-10-12 10:39 | Outpatient (CLI) | payer MEDICARE | END 2022-10-12 10:40 | disposition home or self-care (01) | LOC: TBSIIMAG 10:39 | PROVIDERS: ATTEND Orthopaedic Surgery Hand Surgery | DX: M47.22 Other spondylosis with radiculopathy, cervical region (principal); M48.02 Spinal stenosis, cervical region; M50.11 Cervical disc disorder with radiculopathy, high cervical region; M25.78 Osteophyte, vertebrae; M50.123 Cervical disc disorder at C6-C7 level with radiculopathy; M47.23 Other spondylosis with radiculopathy, cervicothoracic region | CPT/HCPCS: 72141 ==

== ENCOUNTER 2023-03-22 05:46 | Day surgery (SDC) | payer MEDICARE ==
[2023-03-18 09:02] VITALS: BMI 27.9
[2023-03-22] MEDS ORDERED: Propofol 500 MG/50 ML VIAL ONE (06:33)
[2023-03-22] MEDS ORDERED: EPINEPHrine 1 MG/ML AMP ONE (06:35)
[2023-03-22] MEDS ORDERED: Lidocaine 1% (PF) 30 ML VIAL ONE (06:35)
[2023-03-22] MEDS ORDERED: CEFAZOLIN 2 GM VIAL ONE (06:37)
[2023-03-22] MEDS ORDERED: Sodium Chloride 0.9% 100 ML ONE (06:37)
[2023-03-22] MEDS ORDERED: Ketamine 50 MG/ML (10ML VIAL) ONE (06:40)
[2023-03-22] MEDS ORDERED: Dexamethasone 20 MG/5 ML VIAL ONE (06:46)
[2023-03-22] MEDS ORDERED: PROPOFOL 200 MG/20 ML VIAL ONE (06:46)
[2023-03-22] MEDS ORDERED: Ketorolac Tromethamine 30 MG/ML VIAL ONE (06:46)
[2023-03-22] MEDS ORDERED: fentaNYL 50 mcg/mL 1 mL Vial ONE (07:12)
== END 2023-03-22 08:49 | disposition home or self-care (01) ==
LOC: SDC 05:46
PROVIDERS: ATTEND Neurological Surgery
PROC: 01N50ZZ Release Median Nerve, Open Approach (ICD-10-PCS; principal; 2023-03-22)
DX: G56.01 Carpal tunnel syndrome, right upper limb (principal); M19.90 Unspecified osteoarthritis, unspecified site; J44.9 Chronic obstructive pulmonary disease, unspecified; I35.0 Nonrheumatic aortic (valve) stenosis; I42.0 Dilated cardiomyopathy; I10 Essential (primary) hypertension; I25.10 Atherosclerotic heart disease of native coronary artery without angina pectoris; Z79.899 Other long term (current) drug therapy; Z79.82 Long term (current) use of aspirin; Z96.643 Presence of artificial hip joint, bilateral; Z87.891 Personal history of nicotine dependence; Z88.6 Allergy status to analgesic agent
CPT/HCPCS: 64721; J3010; J0171; J1100; J1885; J2001; J2704; J3490

== ENCOUNTER 2023-08-10 08:05 | Outpatient (CLI) | payer MEDICARE ==
[2023-08-10] MEDS ORDERED: Iopamidol 370 76% 100 ML VIAL ONE (09:31)
== END 2023-08-10 08:06 | disposition home or self-care (01) ==
LOC: BICCT 08:05
PROVIDERS: ATTEND Internal Medicine Cardiovascular Disease
DX: I42.0 Dilated cardiomyopathy (principal)
CPT/HCPCS: 71275; 82565; Q9967

== ENCOUNTER 2024-03-30 09:16 | Outpatient (CLI) | payer MEDICARE | END 2024-03-30 09:17 | disposition home or self-care (01) | LOC: RAD 09:16 | PROVIDERS: ATTEND Internal Medicine Critical Care Medicine | DX: R06.00 Dyspnea, unspecified (principal); J98.4 Other disorders of lung | CPT/HCPCS: 71046 ==

== ENCOUNTER 2024-09-11 08:05 | Outpatient (CLI) | payer MEDICARE ==
[2024-09-11] MEDS ORDERED: Iopamidol 370 76% 100 ML VIAL ONE (10:58)
== END 2024-09-11 08:06 | disposition home or self-care (01) ==
LOC: CT 08:05
PROVIDERS: ATTEND Internal Medicine Cardiovascular Disease
DX: J44.9 Chronic obstructive pulmonary disease, unspecified (principal); J43.2 Centrilobular emphysema
CPT/HCPCS: 36415; 71275; 82565

== ENCOUNTER 2025-07-11 10:33 | Outpatient (CLI) | payer MEDICARE | END 2025-07-11 10:34 | disposition home or self-care (01) | LOC: RAD 10:33 | PROVIDERS: ATTEND Internal Medicine Critical Care Medicine | DX: R06.00 Dyspnea, unspecified (principal) | CPT/HCPCS: 71046 ==

== ENCOUNTER 2025-08-09 12:41 | Outpatient (CLI) | payer MEDICARE | END 2025-08-09 12:42 | disposition home or self-care (01) | LOC: BICRAD 12:41 | PROVIDERS: ATTEND Nurse Practitioner Family | DX: J44.1 Chronic obstructive pulmonary disease with (acute) exacerbation (principal); R06.00 Dyspnea, unspecified | CPT/HCPCS: 71046 ==